=== PATIENT | female | born 1990 | race Caucasian/White ===

== ENCOUNTER 2023-06-01 09:12 | Day surgery (SDC) | payer OTHER ==
[~2023-06-01] VITALS: Ht 170.2 cm; Wt 73.9 kg
[~2023-06-01 09:12] MED LIST: CYMBALTA30 MG PO; DENIES CURRENT MEDS; ULTRAM50 M1 PO
[2023-06-01 13:39] VITALS: BP 118/82
== END 2023-06-01 12:02 | disposition home or self-care (01) | DRG 392 ==
LOC: ORM 09:12
PROVIDERS: ATTEND Internal Medicine Gastroenterology
PROC: 0DB98ZX Excision of Duodenum, Via Natural or Artificial Opening Endoscopic, Diagnostic (ICD-10-PCS; principal; 2023-06-01)
PROC: 0DB78ZX Excision of Stomach, Pylorus, Via Natural or Artificial Opening Endoscopic, Diagnostic (ICD-10-PCS; 2023-06-01)
PROC: 0DB48ZX Excision of Esophagogastric Junction, Via Natural or Artificial Opening Endoscopic, Diagnostic (ICD-10-PCS; 2023-06-01)
DX: K29.70 Gastritis, unspecified, without bleeding (principal); B96.81 Helicobacter pylori [H. pylori] as the cause of diseases classified elsewhere